=== PATIENT | female | born 1955 | race Caucasian/White ===

== ENCOUNTER 2016-08-29 09:10 | Emergency (ER) | payer BC ==
[2016-08-29 10:00] VITALS: BP 134/83
[2016-08-29] MEDS ORDERED: Sulfamethox/Trimethoprim DS 800/160* TAB PO ONE (10:11)
--- NOTE | 2016-08-29 10:15 | UC ---
Complaint Female HPI - HPI Summary HPI Summary: urinary frequency , burning x 2 days no fever, no chills, no flank pain - History Of Current Complaint Chief Complaint: UCGU Stated Complaint: URINARY COMPLAINT Time Seen by Provider: 08/29/16 10:00 Hx Obtained From: Patient Hx Last Menstrual Period: n/a Onset/Duration: Gradual Onset, Lasting Days - 2, Still Present Timing: Constant Severity Initially: Moderate Severity Currently: Moderate Character: Burning Aggravating Factor(s): Urination Associated Signs And Symptoms: Negative: Fever, Back Pain, Vaginal Bleeding/ Discharge, Vaginal Discharge, Genital Swelling - Allergies/Home Medications Allergies/Adverse Reactions: Allergies Allergy/AdvReac Type Severity Reaction Status Date / Time seasonal Allergy Congestion Uncoded 08/29/16 09:50 Home Medications: Home Medications Ibuprofen TAB* [Motrin TAB* 800 MG] 800 mg PO Q8H PRN 08/29/16 [History Confirmed 08/29/16] PMH/Surg Hx/FS Hx/Imm Hx Cardiovascular History Of: Reports: Hypertension Respiratory History Of: Reports: COPD GI/ History Of: Reports: Renal Disease - KIDNEY STONES - Surgical History Surgical History: Yes Surgery Procedure, Year, and Place: Single Parathyroidectomy, ~2006, [facility] – [place] - Family History Known Family History: Negative: Diabetes - Social History Alcohol Use: None Substance Use Type: None Smoking Status (MU): Heavy Every Day Tobacco Smoker Type: Cigarettes Amount Used/How Often: ~1 PPD Length of Time of Smoking/Using Tobacco: Since Age 17 Have You Smoked in the Last Year: Yes Household Exposure Type: Cigarettes - Immunization History Most Recent Influenza Vaccination: May 2016 Review of Systems Constitutional: Negative Skin: Negative Eyes: Negative ENT: Negative Respiratory: Negative Cardiovascular: Negative Genitourinary: Dysuria, Frequency, Urgency All Other Systems Reviewed And Are Negative: Yes Physical Exam Triage Information Reviewed: Yes Appearance: Well-Appearing, No Pain Distress, Well-Nourished Vital Signs: Initial Vital Signs Temp 98.2 F 08/29/16 09:46 Pulse 72 08/29/16 09:46 Resp 16 08/29/16 09:46 BP 134/83 08/29/16 09:46 Pulse Ox 99 08/29/16 09:46 Eye Exam: Normal Eyes: Positive: Conjunctiva Clear ENT Exam: Normal ENT: Positive: Normal ENT inspection, Hearing grossly normal, Pharynx normal Neck exam: Normal Neck: Positive: Supple, Nontender, No Lymphadenopathy Respiratory Exam: Normal Respiratory: Positive: Chest non-tender, Lungs clear, Normal breath sounds Cardiovascular Exam: Normal Cardiovascular: Positive: RRR, No Murmur, Pulses Normal Abdominal Exam: Normal Abdomen Description: Positive: Soft, Guarding. Negative: CVA Tenderness (R), CVA Tenderness (L) Bowel Sounds: Positive: Present Musculoskeletal Exam: Normal Neurological Exam: Normal Psychological Exam: Normal Skin Exam: Normal Complaint Female Dx - Differential Dx/Diagnosis Provider Diagnoses: uti Discharge - Discharge Plan Condition: Stable Disposition: HOME Prescriptions: Sulfamethox/Trimethoprim DS* [Bactrim DS 800/160 TAB*] 1 tab PO BID #14 tab Patient Education Materials: Urinary Tract Infection in Women (ED) Referrals: Andre Box MD [Primary Care Provider] - If Needed
== END 2016-08-29 10:36 | disposition home or self-care (01) ==
LOC: UCCORT 09:10
DX: N39.0 Urinary tract infection, site not specified (principal); I10 Essential (primary) hypertension; J44.9 Chronic obstructive pulmonary disease, unspecified; Z87.442 Personal history of urinary calculi; F17.210 Nicotine dependence, cigarettes, uncomplicated
CPT/HCPCS: 81003; 87077; 87086; 87186; 99212; A9270-GY; G0463

== ENCOUNTER 2018-02-09 11:48 | Emergency (ER) | payer BC ==
[2018-02-09 12:24] VITALS: BP 129/91
--- NOTE | 2018-02-09 12:56 | UC ---
General HPI - HPI Summary HPI Summary: Patient presents complaining of shortness of breath and fatigue. She states it began on the of this month with a bout of laryngitis followed quickly by cough and shortness of breath. She called her primary care provider who telephoned in a prescription for prednisone on the . The prednisone wasn't helping and she developed purulent sputum so he added a Z-Hiren on the . She notes that the laryngitis improved however she has ongoing fatigue, cough, congestion and shortness of breath. Patient also notes that the bottom of her ribs are sore and she feels like she might have some "pleurisy" which she notes she has history of. His no associated diaphoresis or cardiac type chest pain. She also denies any leg pain or swelling as well as history of DVT - History of Current Complaint Chief Complaint: UCRespiratory Stated Complaint: COUGH,CONGETSION,SOB Time Seen by Provider: 02/09/18 12:49 Hx Obtained From: Patient Hx Last Menstrual Period: n/a Onset/Duration: Gradual Onset Timing: Constant Pain Intensity: 1 Associated Signs & Symptoms: Positive: Cough, SOB - Allergy/Home Medications Allergies/Adverse Reactions: Allergies Allergy/AdvReac Type Severity Reaction Status Date / Time seasonal Allergy Congestion Uncoded 02/09/18 12:24 Home Medications: Home Medications Methotrexate TAB* 10 mg PO WEEKLY 02/09/18 [History Confirmed 02/09/18] PMH/Surg Hx/FS Hx/Imm Hx - Additional Past Medical History Additional PMH: Pleurisy, COPD, lupus, pneumonia and hypertension - Surgical History Surgical History: Yes Surgery Procedure, Year, and Place: parathyroid - Family History Known Family History: Positive: Other - ca, copd Negative: Diabetes - Social History Occupation: Employed Full-time Lives: With Family Alcohol Use: None Substance Use Type: None Smoking Status (MU): Heavy Every Day Tobacco Smoker Type: Cigarettes Amount Used/How Often: ~1 PPD Length of Time of Smoking/Using Tobacco: Since Age 17 Have You Smoked in the Last Year: Yes Household Exposure Type: Cigarettes - Immunization History Most Recent Influenza Vaccination: May 2016 Vaccination Up to Date: Yes Review of Systems Constitutional: Fatigue Skin: Negative Eyes: Negative ENT: Negative Respiratory: Shortness Of Breath, Cough Cardiovascular: Negative Gastrointestinal: Negative Genitourinary: Negative Motor: Negative Neurovascular: Negative Musculoskeletal: Other: - rib pain Neurological: Negative Psychological: Negative Is Patient Immunocompromised?: No All Other Systems Reviewed And Are Negative: Yes Physical Exam Triage Information Reviewed: Yes Appearance: Well-Appearing Vital Signs: Initial Vital Signs Temp 98.6 F 02/09/18 12:11 Pulse 102 02/09/18 12:11 Resp 24 02/09/18 12:11 BP 129/91 02/09/18 12:11 Pulse Ox 96 02/09/18 12:11 Vital Signs Reviewed: Yes Eyes: Positive: Conjunctiva Inflamed ENT: Positive: Pharynx normal, TMs normal. Negative: Nasal congestion, Nasal drainage Neck: Positive: Supple, Nontender, No Lymphadenopathy Respiratory: Positive: Lungs clear, No respiratory distress, Decreased breath sounds - to bases, Other: - NPC. Negative: Crackles, Rhonchi, Wheezing Cardiovascular: Positive: RRR, No Murmur Abdomen Description: Positive: Nontender, No Organomegaly, Soft Bowel Sounds: Positive: Present Musculoskeletal: Positive: ROM Intact, No Edema, Other: - No calf tenderness or cords Neurological: Positive: Alert Psychological: Positive: Age Appropriate Behavior Skin Exam: Normal Diagnostics - Radiology No standard instances Radiology Interpretation Completed By: Radiologist - CXR IMPRESSION: No active cardiopulmonary disease is noted. Re-Evaluation - Re-Evaluation First Eval Re-Evaluation Time: 13:40 Change: Improved - MUCH BETTER AERATION WITH A FEW WHEEZES. PT STATES BREATHING IS EASIER. HR=96. Course/Dx - Course Course Of Treatment: No concern for ACS. Nontoxic and not hypoxic. Chest x- ray showed no cardiomegaly, PTX, or infiltrates. No concern for pulmonary embolus. Patient is having a flare of her COPD. Zithromax was not helpful, this may be attributed to the fact that she has a flare of COPD that involves no bacterial infection, she has an infection that is resistant to the Zithromax or she has a viral illness. Since this started to form of laryngitis I think that this COPD flare may be the result of a virus. Since she has no fever, infiltrate on chest x-ray and does not require hospitalization, I am going to avoid repeating another round of antibiotics as I feel it would not be beneficial. She does have close follow-up with her primary care and in fact has an appointment on Wednesday at which point he can add additional antibiotics if warranted. Patient had much improvement in her aeration post nebulizer treatment and notes that it was very helpful this and going to look into describing a nebulizer for home use. I'm also going to place her on a moderate dose of steroid for 3 days until she can follow up with her primary care. If at anytime she is worse, she is to go directly to the ER. Patient is declining a note to remain out of work. - Differential Dx - Multi-Symptom Provider Diagnoses: Exacerbation COPD Discharge - Sign-Out/Discharge Documenting (check all that apply): Patient Departure All imaging exams completed and their final reports reviewed: Yes - Discharge Plan Condition: Improved Disposition: HOME Prescriptions: Albuterol 2.5MG/3ML (0.083%)* [Ventolin 2.5 MG/3 ML NEB.MELODIE*] 2.5 mg INH Q6H #1 box predniSONE TAB* [Deltasone 20 MG TAB*] 40 mg PO DAILY 3 Days #6 tab Patient Education Materials: COPD (Chronic Obstructive Pulmonary Disease) (ED) Referrals: Andre Box MD [Primary Care Provider] - 02/11/18 Additional Instructions: FOLLOW UP WITH YOUR DOCTOR SCHEDULED IN 2 DAYS. - Billing Disposition and Condition Condition: IMPROVED Disposition: Home
[2018-02-09] MEDS ORDERED: Albuterol/Ipratropium NEB.SOL* Albuterol 2.5 MG/Ipratropium 0.5 MG 3 ML INH ONE (13:00)
--- NOTE | 2018-02-09 13:22 | RAD ---
Indication: Cough, shortness of breath. 2 views of the chest including dual energy PA views demonstrates no mediastinal shift. Heart is of normal size and configuration. Lung pro are clear. No changes noted since previous exam of November 07, 2009. IMPRESSION: No active cardiopulmonary disease is noted.
== END 2018-02-09 14:04 | disposition home or self-care (01) ==
LOC: UCCORT 11:48
DX: J44.1 Chronic obstructive pulmonary disease with (acute) exacerbation (principal); J30.2 Other seasonal allergic rhinitis; M32.9 Systemic lupus erythematosus, unspecified; I10 Essential (primary) hypertension; F17.210 Nicotine dependence, cigarettes, uncomplicated; Z87.09 Personal history of other diseases of the respiratory system
CPT/HCPCS: 71046; 99212; A9270-GY; G0463

== ENCOUNTER 2018-05-14 10:34 | Emergency (ER) | payer BC ==
[2018-05-14 10:59] VITALS: BP 124/75
--- NOTE | 2018-05-14 11:49 | UC ---
General HPI - HPI Summary HPI Summary: pt c/o 2 day hx coughing up blood in am upon waking and notes more effort to take a deep breath. also notes pain to inside of her L shoulder blade that feels deep in lung upon taking a deep breath. Hx COPD AND Lupus. Denies fever. No hx PE. No hx TB. No hx bruising or blood thinner use. - History of Current Complaint Chief Complaint: UCRespiratory Stated Complaint: COUGH Time Seen by Provider: 05/14/18 11:41 Hx Obtained From: Patient Hx Last Menstrual Period: n/a Pain Intensity: 0 Associated Signs & Symptoms: Positive: Cough, SOB - "harder to take a deep breath". Negative: Anticoagulation Therapy, Chest Pain, Fever, Wheezing - Allergy/Home Medications Allergies/Adverse Reactions: Allergies Allergy/AdvReac Type Severity Reaction Status Date / Time seasonal Allergy Congestion Uncoded 05/14/18 10:51 Home Medications: Home Medications Albuterol 2.5MG/3ML (0.083%)* [Ventolin 2.5 MG/3 ML NEB.MELODIE*] 2.5 mg INH Q6H PRN 05/14/18 [History Confirmed 05/14/18] PMH/Surg Hx/FS Hx/Imm Hx - Additional Past Medical History Additional PMH: Lupus Respiratory History: COPD, Pneumonia - Surgical History Surgical History: Yes Surgery Procedure, Year, and Place: parathyroid - Family History Known Family History: Positive: Other - ca, copd Negative: Diabetes - Social History Occupation: Employed Full-time Alcohol Use: None Substance Use Type: None Smoking Status (MU): Heavy Every Day Tobacco Smoker Type: Cigarettes Amount Used/How Often: ~1 PPD Length of Time of Smoking/Using Tobacco: Since Age 17 Have You Smoked in the Last Year: Yes Household Exposure Type: Cigarettes - Immunization History Most Recent Influenza Vaccination: May 2016 Most Recent Tetanus Shot: unknown Vaccination Up to Date: Yes Review of Systems All Other Systems Reviewed And Are Negative: Yes Constitutional: Positive: Negative Skin: Positive: Negative Eyes: Positive: Negative ENT: Positive: Negative Respiratory: Positive: Shortness Of Breath, Cough Cardiovascular: Positive: Negative Gastrointestinal: Positive: Negative Genitourinary: Positive: Negative Motor: Positive: Negative Neurovascular: Positive: Negative Musculoskeletal: Positive: Negative Neurological: Positive: Negative Psychological: Positive: Negative Physical Exam Triage Information Reviewed: Yes Appearance: Well-Appearing Vital Signs: Initial Vital Signs Temp 97.5 F 05/14/18 10:55 Pulse 93 05/14/18 10:55 Resp 18 05/14/18 10:55 BP 124/75 05/14/18 10:55 Pulse Ox 98 05/14/18 10:55 Vital Signs Reviewed: Yes Eyes: Positive: Conjunctiva Clear ENT: Positive: Pharynx normal, TMs normal. Negative: Nasal congestion, Nasal drainage Neck: Positive: Supple, Nontender, No Lymphadenopathy Respiratory: Positive: Chest non-tender, Lungs clear, No respiratory distress, Decreased breath sounds Cardiovascular: Positive: RRR, No Murmur Abdomen Description: Positive: Nontender, No Organomegaly, Soft Bowel Sounds: Positive: Present Musculoskeletal: Positive: ROM Intact, No Edema, Other: - No calf cords or tenderness. Neurological: Positive: Alert Psychological: Positive: Age Appropriate Behavior Skin Exam: Normal Diagnostics - Radiology No standard instances Radiology Interpretation Completed By: Radiologist - cxr= Indeterminate 1.4 cm opacity at the RIGHT lung base. In the setting of clinical pneumonia a rounded pneumonia is favored. In such case Radiographic follow-up after therapy suggested to assess for resolution. If the clinical presentation is not consistent with pneumonia consider chest CT to assess for a lung mass Course/Dx - Course Course Of Treatment: Pt agrees to ER transfer for aditional evaluation and tx. [facility] ER called report of hx, pe and cxr findings reviewed. advised of need to r/ o PE vs pneumonia vs pulmonay lesion. - Differential Dx - Multi-Symptom Differential Diagnoses: Other - non specific opactiy on CXR with hemoptysis and pleuritic cp. PE vs infiltrate vs lesion. - Diagnoses Provider Diagnosis: Hemoptysis, Pleuritic chest pain, Opacity of lung on imaging study Discharge - Sign-Out/Discharge Documenting (check all that apply): Patient Departure All imaging exams completed and their final reports reviewed: Yes - Discharge Plan Condition: Stable Disposition: TRANS HIGHER LVL OF CARE FAC Referrals: Andre Box MD [Primary Care Provider] - Additional Instructions: LEAVE HERE AND GO DIRECTLY TO THE ER DISCUSSED. - Billing Disposition and Condition Condition: STABLE Disposition: Trans Higher Lvl of Care Fac
== END 2018-05-14 12:51 | disposition short-term general hospital (02) ==
LOC: UCCORT 10:34
DX: R04.2 Hemoptysis (principal); R07.81 Pleurodynia; R91.8 Other nonspecific abnormal finding of lung field; F17.210 Nicotine dependence, cigarettes, uncomplicated
CPT/HCPCS: 71046; 99212; G0463